=== PATIENT | female | born 1960 | race Native Hawaiian/Other Pacific Islander ===

== ENCOUNTER 2017-02-08 17:43 | Inpatient (IN) | payer OTHER ==
--- NOTE | ~2017-02-08 | HP ---
History And Physical [place] [address] [place]. [address] NAME: MAHESH PECK : 60 STATUS : ADM Hannah PAT#: [id number] AGE: 56 ADM/REG DATE : 02/08/17 MR#: [id number] REPORT SERV DATE: 02/09/17 DICTATED BY: ANDREAS TABOR DATE: 02/09/17 REPORT STATUS : Draft TRANSCRIBED BY: SHERICE DATE: 02/09/17 DATE OF ADMISSION: 02/08/2017 CHIEF COMPLAINT: A 56-year-old female traveling from [place], [place], to be treated at [facility] in [place] for metastatic end-stage breast cancer, now presenting with increasing illness, shortness of breath, and jaundice. HISTORY OF PRESENTING ILLNESS: The patient's history was obtained through an interview with the patient and daughter, also telephone conversation with the patient's . The patient was first diagnosed of breast cancer in 2007, underwent some kind of hormone treatment, surgery, radiation, but then in 2015 had metastatic disease diagnosed particularly with metastases to the liver, but also evidence of metastases to the lung and possibly to the bone as well. She apparently "exhausted" her chemotherapy options and was recommended to pursue hospice care for comfort measures. However, in November 2016 the family began to look into other options and looked into the clinic at [facility] in [place]. Two weeks ago came to [facility] for treatments including some kind of herbal remedies, massage therapy, and other therapies, but despite these there has been no real improvement in the patient's clinical course. Over the last several days, the patient has become increasingly jaundiced, weak, confused, ill, fatigued, and lethargic. She has also had increasing shortness of breath characterized by dyspnea on exertion and nonproductive cough. She has multiple sites of pain including chest pain, abdominal pain, back pain, and myalgias throughout. She is unable to give a clear severity of the pain though. No nausea or vomiting. No diarrhea. No fevers or chills. REVIEW OF SYSTEMS: Otherwise, a 14-point review of systems was obtained and was negative. PAST MEDICAL HISTORY: Breast cancer with broad metastases status post chemotherapy, surgery, radiation. PAST SURGICAL HISTORY: Lumpectomies of the breast and . ALLERGIES: NO KNOWN DRUG ALLERGIES. SOCIAL HISTORY: Quit smoking. No alcohol abuse. Lives in [place], [place]. . Has adopted daughter at bedside. Another child in [place]. History And Physical [address] [place]. [address] NAME: MAHESH PECK : 60 STATUS : ADM Hannah PAT#: [id number] AGE: 56 ADM/REG DATE : 02/08/17 MR#: [id number] REPORT SERV DATE: 02/09/17 DICTATED BY: ANDREAS TABOR DATE: 02/09/17 REPORT STATUS : Draft TRANSCRIBED BY: SHERICE DATE: 02/09/17 FAMILY HISTORY: No family history of breast cancer. CURRENT MEDICATIONS: 1. Ambien. 2. Morphine. 3. Ativan. 4. Hydrocodone. PHYSICAL EXAMINATION: VITAL SIGNS: Temperature 97.8, pulse 80, blood pressure 92/50, respiratory rate 16, and O2 saturation 95% on 2 L nasal cannula, 86% on room air. GENERAL: A toxic appearing female in evidence of some distress secondary to shortness of breath and pain. HEENT: Pupils equal, round, and reactive to light. No conjunctival pallor. The patient does have scleral icterus though. Nares are patent. Oropharynx is clear of obstruction. Dry mucous membranes. No intraoral lesions. NECK: Trachea midline. No thyromegaly. LYMPH: No cervical lymphadenopathy. No supraclavicular lymphadenopathy. No axillary lymphadenopathy. No inguinal lymphadenopathy. RESPIRATORY: The patient has scattered rhonchi on examination. No wheezes. A very labored respiratory effort. CARDIOVASCULAR: Regular rate and rhythm. No murmurs, rubs, or gallops. The patient has deeply pitting lower extremity edema that is symmetrical. ABDOMEN: The patient has a massively enlarged liver that is hard to palpation and tender, and extends almost through her entire right abdomen. It is masslike and nodular in palpation. She has an extremely tender abdomen with guarding, but no rebound effect. Nondistended. I do not appreciate splenomegaly at this time though. DERMATOLOGICAL: Extreme jaundice, otherwise warm and dry extremities. No pallor. No cyanosis. PSYCHIATRIC: Flat affect and anxious mood. Alert, appropriate, and oriented x3. LABORATORY DATA: AST 492, ALT 111, alkaline phosphatase 5267. Total bilirubin 37. INR 1.8. Albumin 2.0. Brain natriuretic peptide 596. Troponin negative. White blood cell count 16, hemoglobin 11, hematocrit 34, and platelets 322. Sodium 131, potassium 5.5, chloride 102, bicarb 16, BUN 69, creatinine 5.08, and glucose 98. STUDIES: Chest x-ray by my own evaluation shows nodular appearing bilateral infiltrates. ASSESSMENT AND PLAN: 1. End-stage metastatic breast cancer. Provide comfort care. The patient does agree to being a DNR, no CPR, no intubation, we will ask Case Management. Talking with the family, their main goal may be to be stable enough to transfer back up to [place], [place], to be in her home for hospice care. 2. Acute renal failure. History And Physical [address] [address] NAME: MAHESH PECK : 60 STATUS : ADM Hannah PAT#: [id number] AGE: 56 ADM/REG DATE : 02/08/17 MR#: [id number] REPORT SERV DATE: 02/09/17 DICTATED BY: ANDREAS TABOR DATE: 02/09/17 REPORT STATUS : Draft TRANSCRIBED BY: SHERICE DATE: 02/09/17 3. Cholestatic liver failure. 4. Hypoxic respiratory failure. 5. Possible infection. Place on IV antibiotics. KPL/MODL Andreas Tabor M.D. / [id number] CC: Daniel Matt M.D.
--- NOTE | ~2017-02-08 | DS ---
Discharge Summary [facility] [address] [place]. [address] NAME: MAHESH PECK : 60 STATUS : DIS Hannah PAT#: [id number] AGE: 56 ADM/REG DATE : 02/08/17 MR#: [id number] REPORT SERV DATE: 02/12/17 DICTATED BY: DANIEL MATT DATE: 02/11/17 REPORT STATUS : Draft TRANSCRIBED BY: MODLeela DATE: 02/11/17 ADMISSION DATE: 02/08/2017 DISCHARGE DATE: 02/11/2017 DISCHARGE DIAGNOSES: End-stage metastatic breast cancer, hepatic failure, hypoxic respiratory failure, acute renal failure, hyperkalemia, possibility of pneumonia. CONSULTANTS DURING THIS HOSPITALIZATION: Hospice. INVASIVE PROCEDURES DURING THIS HOSPITALIZATION: None. BRIEF HISTORY OF PRESENT ILLNESS: The patient is an unfortunate 56-year-old female who had traveled from [facility] to [facility] for treatment of metastatic end-stage breast cancer, presented with increasing shortness of breath and jaundice, so she was admitted. For detailed history and physical exam, please see note dictated by Dr. Bryan Catherine on 02/08/2017. HOSPITAL COURSE: After being admitted to the hospital, this patient was initially thought to have pneumonia. She was given broad-spectrum antibiotics. Blood cultures were done. Her procalcitonin level was slightly elevated around 2.73, but it was thought due to most likely metastatic breast cancer and my perception was that she probably had malignant pleural effusions as noted on her chest x-ray as well. She had significant jaundice with a bilirubin of 30+ and this was due to metastatic disease and liver failure. Her creatinine also edelmira and she continued to increase. Her creatinine today was 6.5 with a BUN of 80. Dr. Catherine had a discussion with the family about comfort care. When I saw the patient, we were still trying at least to get her to [facility], however, this patient's condition has continued to decline including worsening renal failure. I have discussed with the the nature of her disease and poor prognosis, and at this time, we decided that this patient would be best served by hospice. is agreeable. We have made patient total comfort care and [facility] has taken over her care. DISCHARGE DISPOSITION: To hospice. DISCHARGE ACTIVITY: The patient bedbound. DISCHARGE DIET: As tolerated. DISCHARGE MEDICATIONS: Will be deferred to hospice. DISCHARGE FOLLOWUP: Will be done by hospice as well. CHIARA/SHERICE Daniel Discharge Summary [address] [place]. [address] NAME: MAHESH PECK : 60 STATUS : DIS Hannah PAT#: [id number] AGE: 56 ADM/REG DATE : 02/08/17 MR#: [id number] REPORT SERV DATE: 02/12/17 DICTATED BY: DANIEL MATT DATE: 02/11/17 REPORT STATUS : Draft TRANSCRIBED BY: SHERICE DATE: 02/11/17 Laureano Matt / [id number] CC: Daniel Matt M.D.
[2017-02-08 20:24] LABS: BASOPHILS 0.1 %; BASOPHILS ABSOLUTE 0.01 10/3/uL (0.0-0.16); EOSINOPHILS 0.1 %; EOSINOPHILS ABSOLUTE 0.01 10/3/uL (0.0-0.53); ER CBC TAT 0 Hrs 12 Mins; HEMATOCRIT 34.3 % (36.0-48.0); HEMOGLOBIN 10.9 g/dL (12.0-16.0); IMMATURE GRANULOCYTES 1.5 %; IMMATURE GRANULOCYTES ABSOLUTE 0.24 10/3/uL (0.0-0.11); LYMPHOCYTES 5.2 %; LYMPHOCYTES ABSOLUTE 0.83 10/3/uL (0.67-4.30); MEAN CORPUS HGB CONC 31.8 g/dL (32.0-36.0); MEAN CORPUSCULAR HEMOGLOB 28.5 pg (26.0-34.0); MEAN CORPUSCULAR VOLUME 89.8 fL (80-100); MEAN PLATELET VOLUME 8.9 fL (9.2-13.0); MONOCYTES 6.4 %; MONOCYTES ABSOLUTE 1.02 10/3/uL (0.21-1.20); NEUTROPHILS 86.7 %; NEUTROPHILS ABSOLUTE 13.93 10/3/uL (2.02-8.40); PLATELET COUNT 322 10/3/uL (150-400); RBC DISTRIBUTION WIDTH 20.8 % (12.0-16.0); RED CELL COUNT 3.82 10/6/uL (4.0-5.6)
[2017-02-08 20:26] LABS: MANUAL DIFF NO %
[2017-02-08 20:32] LABS: INTERNATIONAL NORMAL RATI 1.8 UNITS (-); PARTIAL THROMBO TIME 46.7 SEC (22.5-37.2); PROTIME (NOT ORD) 20.4 SEC (12.0-14.5)
[2017-02-08 20:50] LABS: BUN (BLOOD UREA NITROGEN) 69 MG/DL (6-23); CALCIUM, SERUM 8.4 MG/DL (8.5-10.4); CHLORIDE, SERUM 102 MMOL/L (96-112); CO2 (CARBON DIOXIDE) 16 MMOL/L (24-34); DIRECT BILIRUBIN 33.4 MG/DL (0.0-0.4); GLUCOSE, SERUM 92 MG/DL (60-99); SGPT(ALT) 111 U/L (5-65); SODIUM, SERUM 131 MMOL/L (135-148); TROPONIN I <0.02 NG/ML (<0.05)
[2017-02-08] MEDS ORDERED: ATV.5 PO (20:56)
[2017-02-08 20:58] LABS: INDIRECT BILIRUBIN(NOT ORDER) 3.6 MG/DL (0.1-0.9)
[2017-02-08 20:59] LABS: CHEST PAIN PROFILE TAT 0 Hrs 38 Mins; CREATININE 5.08 MG/DL (0.55-1.02); GFR AFRICAN AMERICAN 10 ML/MIN (>=60); GFR NON AFRICAN AMERICAN 9 ML/MIN (>=60); POTASSIUM, SERUM 5.5 MMOL/L (3.5-5.3); TOTAL PROTEIN 5.5 G/DL (6.0-8.5)
[2017-02-08 21:00] LABS: SGOT(AST) 492 U/L (5-40)
[2017-02-08] MEDS ORDERED: MORPHINE 5 MG PO (21:00)
[2017-02-08] MEDS ORDERED: NORCO1 TA1 PO (21:00)
[2017-02-08] MEDS ORDERED: AMB10 PO (21:00)
[2017-02-08 21:24] LABS: ALKALINE PHOSPHATASE 5267 U/L (45-117)
[2017-02-09 05:29] LABS: BASOPHILS 0.1 %; BASOPHILS ABSOLUTE 0.01 10/3/uL (0.0-0.16); EOSINOPHILS 0.2 %; EOSINOPHILS ABSOLUTE 0.02 10/3/uL (0.0-0.53); HEMOGLOBIN 9.5 g/dL (12.0-16.0); IMMATURE GRANULOCYTES 1.9 %; IMMATURE GRANULOCYTES ABSOLUTE 0.24 10/3/uL (0.0-0.11); LYMPHOCYTES 4.3 %; LYMPHOCYTES ABSOLUTE 0.55 10/3/uL (0.67-4.30); MEAN CORPUS HGB CONC 31.1 g/dL (32.0-36.0); MEAN CORPUSCULAR HEMOGLOB 27.9 pg (26.0-34.0); MEAN CORPUSCULAR VOLUME 89.7 fL (80-100); MEAN PLATELET VOLUME 9.4 fL (9.2-13.0); MONOCYTES 9.6 %; MONOCYTES ABSOLUTE 1.24 10/3/uL (0.21-1.20); NEUTROPHILS 83.9 %; NEUTROPHILS ABSOLUTE 10.84 10/3/uL (2.02-8.40); PLATELET COUNT 296 10/3/uL (150-400); WHITE BLOOD CELLS 12.9 10/3/uL (4.5-10.5)
[2017-02-09 05:35] LABS: HEMATOCRIT 30.5 % (36.0-48.0); MANUAL DIFF NO %
[2017-02-09 05:43] LABS: INTERNATIONAL NORMAL RATI 1.9 UNITS (-); PARTIAL THROMBO TIME 44.7 SEC (22.5-37.2); PROTIME (NOT ORD) 21.6 SEC (12.0-14.5)
[2017-02-09 05:53] LABS: BUN (BLOOD UREA NITROGEN) 69 MG/DL (6-23); CALCIUM, SERUM 8.3 MG/DL (8.5-10.4); CHLORIDE, SERUM 104 MMOL/L (96-112); GLUCOSE, SERUM 77 MG/DL (60-99); POTASSIUM, SERUM 5.5 MMOL/L (3.5-5.3); SODIUM, SERUM 132 MMOL/L (135-148)
[2017-02-09 06:05] LABS: A/G RATIO 1.1 (0.7-1.9); ALBUMIN 2.8 G/DL (3.5-5.0); CO2 (CARBON DIOXIDE) 12 MMOL/L (24-34); CREATININE 5.09 MG/DL (0.55-1.02); GFR AFRICAN AMERICAN 10 ML/MIN (>=60); GFR NON AFRICAN AMERICAN 9 ML/MIN (>=60); GLOBULIN 2.5 G/DL (2.5-4.1); TOTAL BILIRUBIN 32.7 MG/DL (0-1.2); TOTAL PROTEIN 5.3 G/DL (6.0-8.5)
[2017-02-09 06:06] LABS: SGOT(AST) 368 U/L (5-40); SGPT(ALT) 89 U/L (5-65)
[2017-02-09 07:22] LABS: ALKALINE PHOSPHATASE 3775 U/L (45-117)
[2017-02-09 13:32] LABS: PROCALCITONIN 2.35 ng/mL (<0.5)
[2017-02-10 06:11] LABS: BASOPHILS 0.1 %; BASOPHILS ABSOLUTE 0.01 10/3/uL (0.0-0.16); EOSINOPHILS 0.3 %; EOSINOPHILS ABSOLUTE 0.04 10/3/uL (0.0-0.53); HEMATOCRIT 29.6 % (36.0-48.0); HEMOGLOBIN 9.2 g/dL (12.0-16.0); IMMATURE GRANULOCYTES 1.4 %; IMMATURE GRANULOCYTES ABSOLUTE 0.18 10/3/uL (0.0-0.11); LYMPHOCYTES 3.1 %; MANUAL DIFF NO %; MEAN CORPUS HGB CONC 31.1 g/dL (32.0-36.0); MEAN CORPUSCULAR HEMOGLOB 28.3 pg (26.0-34.0); MEAN CORPUSCULAR VOLUME 91.1 fL (80-100); MEAN PLATELET VOLUME 8.9 fL (9.2-13.0); MONOCYTES 11.3 %; MONOCYTES ABSOLUTE 1.48 10/3/uL (0.21-1.20); NEUTROPHILS 83.8 %; NEUTROPHILS ABSOLUTE 10.97 10/3/uL (2.02-8.40); PLATELET COUNT 265 10/3/uL (150-400); RBC DISTRIBUTION WIDTH 21.3 % (12.0-16.0); RED CELL COUNT 3.25 10/6/uL (4.0-5.6); WHITE BLOOD CELLS 13.1 10/3/uL (4.5-10.5)
[2017-02-10 06:43] LABS: BUN (BLOOD UREA NITROGEN) 72 MG/DL (6-23); CALCIUM, SERUM 8.6 MG/DL (8.5-10.4); CHLORIDE, SERUM 104 MMOL/L (96-112); GLUCOSE, SERUM 76 MG/DL (60-99); PHOSPHORUS, SERUM 4.8 MG/DL (2.5-4.5); POTASSIUM, SERUM 5.1 MMOL/L (3.5-5.3); SGOT(AST) 292 U/L (5-40); SGPT(ALT) 69 U/L (5-65); SODIUM, SERUM 132 MMOL/L (135-148)
[2017-02-10 06:49] LABS: ALBUMIN 3.4 G/DL (3.5-5.0); CO2 (CARBON DIOXIDE) 13 MMOL/L (24-34); CREATININE 5.54 MG/DL (0.55-1.02); DIRECT BILIRUBIN 29.7 MG/DL (0.0-0.4); GFR AFRICAN AMERICAN 9 ML/MIN (>=60); GFR NON AFRICAN AMERICAN 8 ML/MIN (>=60); INDIRECT BILIRUBIN(NOT ORDER) 5.4 MG/DL (0.1-0.9); TOTAL BILIRUBIN 35.1 MG/DL (0-1.2); TOTAL PROTEIN 5.6 G/DL (6.0-8.5)
[2017-02-10 07:34] LABS: ALKALINE PHOSPHATASE 3180 U/L (45-117)
[2017-02-11 06:41] LABS: ALBUMIN 3.3 G/DL (3.5-5.0); CALCIUM, SERUM 8.5 MG/DL (8.5-10.4); CHLORIDE, SERUM 103 MMOL/L (96-112); GLUCOSE, SERUM 78 MG/DL (60-99); POTASSIUM, SERUM 5.5 MMOL/L (3.5-5.3); SODIUM, SERUM 130 MMOL/L (135-148)
[2017-02-11 06:45] LABS: BUN (BLOOD UREA NITROGEN) 80 MG/DL (6-23); CO2 (CARBON DIOXIDE) 14 MMOL/L (24-34); CREATININE 6.25 MG/DL (0.55-1.02); GFR AFRICAN AMERICAN 8 ML/MIN (>=60); GFR NON AFRICAN AMERICAN 7 ML/MIN (>=60); PHOSPHORUS, SERUM 5.6 MG/DL (2.5-4.5); TOTAL PROTEIN 5.6 G/DL (6.0-8.5)
[2017-02-11 06:46] LABS: DIRECT BILIRUBIN 33.2 MG/DL (0.0-0.4); INDIRECT BILIRUBIN(NOT ORDER) 4.8 MG/DL (0.1-0.9); SGOT(AST) 354 U/L (5-40); SGPT(ALT) 73 U/L (5-65)
[2017-02-11 07:05] LABS: ALKALINE PHOSPHATASE 3254 U/L (45-117)
== END 2017-02-11 16:52 | disposition hospice, inpatient (51) | DRG 194 ==
LOC: ER 17:43 → 4EA 21:53
PROVIDERS: Hospitalist; Internal Medicine; Physician Assistant
DX: J18.9 Pneumonia, unspecified organism (principal); N17.9 Acute kidney failure, unspecified; J91.0 Malignant pleural effusion; C78.7 Secondary malignant neoplasm of liver and intrahepatic bile duct; C78.00 Secondary malignant neoplasm of unspecified lung; Z51.5 Encounter for palliative care; E87.5 Hyperkalemia; Z66 Do not resuscitate; Z87.891 Personal history of nicotine dependence; Z85.3 Personal history of malignant neoplasm of breast; Z92.3 Personal history of irradiation; Z92.21 Personal history of antineoplastic chemotherapy
CPT/HCPCS: 71010; 80048; 80053; 80069; 80076; 83690; 83735; 83880; 84145; 84484; 85025; 85610; 85730; 87040; 93005; 96365; 99285; A9270-GY; J0692; J1956; J2405; P9047

== ENCOUNTER 2017-02-11 16:57 | Inpatient (IN) | payer OTHER ==
--- NOTE | ~2017-02-11 | HP ---
History And Physical [place] [id number] [facility] [place]. [address] NAME: MAHESH PECK : 60 STATUS : ADM IN [facility] WITH [facility]#: [id number] AGE: 56 ADM/REG DATE : 02/11/17 MR#: [id number] REPORT SERV DATE: 02/12/17 DICTATED BY: RICHARD CHILDRESS DATE: 02/12/17 REPORT STATUS : Draft TRANSCRIBED BY: MODLeela DATE: 02/12/17 DATE OF ADMISSION: 02/11/2017 The patient had previously been admitted on 02/08 to the Medicine Service. HISTORY OF PRESENT ILLNESS: The patient is a 56-year-old with breast cancer of the left breast diagnosed in 2007, treated with lumpectomy and chemotherapy and radiation. She had a recurrence in 2015, was found to have widely metastatic cancer, but she had several rounds of chemotherapy until she was told there were no other chemotherapies to try. They then came from [place], [place] to the [facility] maybe 10 days to two weeks ago. She was treated there with a variety of complementary medicines that did not slow her decline. The decision was made to try to come to the hospital as she has declined so badly. She has liver mets. She has malignant pleural effusion. She has renal failure. Bilirubin is 31, creatinine is greater than 6. She is now admitted GIP for pain. Since we began some morphine last night, the patient is more comfortable, but she is now more obtunded and the family is okay with this. Blood pressure has been low and continues to decline. She is having occasional apneic spells. She is DNR. PAST MEDICAL HISTORY: Includes only diverticulitis. ALLERGIES: SHE HAS NO ALLERGIES. FAMILY HISTORY: Negative for breast cancer, but positive for congestive heart failure and chronic kidney disease. She is status post port/lumpectomy and , has one child, Roula, who is present as is the , Daniel. She is from the [facility]. She smoked from 1975 to 2004. No alcohol. 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 She has no allergies. The only complaints prior to her admission were pain and dyspnea. PHYSICAL EXAMINATION: GENERAL: She, on exam, is an obtunded , very very jaundiced. VITAL SIGNS: Blood pressure 74/45, respirations 8, pulse 84, temperature 97.4. HEENT: Pupils equal. Extraocular motions cannot be assessed. Sclerae very jaundiced. LUNGS: Rales on the left chest. Decreased breath sounds on the right side. HEART: Regular sinus rhythm. No murmurs or gallops. ABDOMEN: Firm with what appears like metastatic disease. Liver is at least 5 cm below the costal margin, somewhat distended. EXTREMITIES: She has 2+ edema in her legs. PLAN: Admit for GIP to get her pain under control, which would appear to be making progress with. Now she appears to be dying, probably hours to a day or so. GP/MAKAYLAL History And Physical [address] [address] NAME: MAHESH PECK : 60 STATUS : ADM IN [facility] WITH [facility]#: [id number] AGE: 56 ADM/REG DATE : 02/11/17 MR#: [id number] REPORT SERV DATE: 02/12/17 DICTATED BY: RICHARD CHILDRESS DATE: 02/12/17 REPORT STATUS : Draft TRANSCRIBED BY: SHERICE DATE: 02/12/17 Richard Childress MD / [id number] CC: Richard Childress MD
--- NOTE | ~2017-02-11 | DS ---
Discharge Summary [facility] [address] [place]. [address] NAME: MAHESH PECK : 60 STATUS : DIS IN PAT#: [id number] AGE: 56 ADM/REG DATE : 02/11/17 MR#: [id number] REPORT SERV DATE: 02/24/17 DICTATED BY: RICHARD CHILDRESS DATE: 02/23/17 REPORT STATUS : Draft TRANSCRIBED BY: MODL DATE: 02/23/17 ADMISSION DATE: 02/11/2017 DISCHARGE DATE: 02/14/2017 The patient is a 56-year-old admitted to the Medicine Service on 02/08/2017 with metastatic breast cancer. She was first diagnosed in 2007, recurred in 2015. She had had some chemotherapy. She then went to the [facility] and was trying to get back to [place] and only got as far as [place] before becoming so ill that she had to come in. She had a malignant pleural effusion, renal failure, liver failure, kidney failure, and was admitted GIP to [facility]. We began with some morphine to try to get her more comfortable, but she became more obtunded. We continued to monitor and adjust the morphine and Ativan to keep the patient comfortable and she on 02/14/2017 at 5:17 p.m. Cause of is widely metastatic breast cancer with resultant liver and kidney failure. DICTATED BY: Richard Childress MD GP/SHERICE Richard Childress MD / [id number] CC: Richard Childress MD
[~2017-02-11 16:57] MED LIST: AMB10 PO; ATV.5 PO; MORPHINE 5 MG PO; NORCO1 TA1 PO
== END 2017-02-14 20:02 | disposition expired | DRG 598 ==
LOC: 4EA 16:57
DX: C50.912 Malignant neoplasm of unspecified site of left female breast (principal); N17.9 Acute kidney failure, unspecified; J90 Pleural effusion, not elsewhere classified; C78.2 Secondary malignant neoplasm of pleura; C78.7 Secondary malignant neoplasm of liver and intrahepatic bile duct; Z66 Do not resuscitate; Z87.891 Personal history of nicotine dependence; E87.5 Hyperkalemia; Z51.5 Encounter for palliative care; K72.90 Hepatic failure, unspecified without coma